=== PATIENT | female | born 1990 | race Caucasian/White ===

== ENCOUNTER 2018-02-09 20:58 | Emergency (ER) | payer OTHER, MEDICAID | END 2018-02-09 22:17 | disposition left against medical advice (07) | LOC: FTE 20:58 | DX: S51.811A Laceration without foreign body of right forearm, initial encounter (principal); W25.XXXA Contact with sharp glass, initial encounter; Y92.9 Unspecified place or not applicable | CPT/HCPCS: 12001; 99283-25 ==